=== PATIENT | male | born 1965 | race Hispanic/Latino ===

== ENCOUNTER 2023-01-30 08:24 | Observation (INO) | payer OTHER ==
[2023-01-29 10:55] LABS: BASOPHILS % 0.5 % (0.0-1.0); EOSINOPHILS # (AUTO) 0.3 (0.0-0.4); EOSINOPHILS % 3.3 % (0.0-6.0); HEMATOCRIT 42.1 % (38.2-49.6); HEMOGLOBIN 13.7 g/dL (14.0-18.0); LYMPHOCYTES # (AUTO) 2.8 (1.0-3.2); LYMPHOCYTES % 32.5 % (18.0-39.1); MEAN CORPUSCULAR HGB CONC 32.5 g/dL (31-35); MEAN CORPUSCULAR VOLUME 92.1 fL (81-99); MONOCYTES # (AUTO) 0.5 (0.2-0.8); MONOCYTES % 5.5 % (4.4-11.3); PLATELET COUNT 238 x10e3/uL (140-360); RED BLOOD COUNT 4.57 x10e6/uL (4.3-5.7); RED CELL DISTRIBUTION WIDTH 13.1 % (11.7-14.4)
[2023-01-29 11:07] LABS: INR 1.04; PROTHROMBIN TIME 14.1 seconds (11.9-14.5)
[2023-01-29 11:13] LABS: ANION GAP 13.3 mmol/L (8-16); CALCIUM 9.3 mg/dL (8.4-10.2); CREATININE, SERUM 0.91 mg/dL (0.72-1.25); POTASSIUM 4.3 mmol/L (3.5-5.1)
[~2023-01-30] VITALS: Ht 170.2 cm; Wt 145.1 kg
[~2023-01-30 08:24] MED LIST: METFORMIN HCL500 M1 PO; METHOCARBAMOL750 MG PO; NEURONTIN400 MG PO
[2023-01-30] MEDS ORDERED: CEFAZOLIN SODIUM 2 GM ONE (09:46)
[2023-01-30] MEDS ORDERED: SUGAMMADEX SODIUM 200 MG/2 ML VIAL IV ONE (12:24)
[2023-01-30] MEDS ORDERED: ACETAMINOPHEN 1000 MG/100 ML 100 ML IV ONE (12:24)
[2023-01-30] MEDS ORDERED: FENTANYL CITRATE/PF 100MCG/2 ML INJ ONE (12:57)
[2023-01-30] MEDS ORDERED: MAGNESIUM/ALUMINUM/SIMETHICONE 30 ML UDC PO PRN (13:45)
[2023-01-30] MEDS ORDERED: CEPACOL SORE THROAT LOZENGES PO PRN (13:45)
[2023-01-30] MEDS ORDERED: CARISOPRODOL 350 MG TAB PO PRN (13:45)
[2023-01-30] MEDS ORDERED: ACETAMINOPHEN 325 MG TAB PO PRN (13:45)
[2023-01-30] MEDS ORDERED: ZOLPIDEM TARTRATE 5 MG TAB PO PRN (13:45)
[2023-01-30] MEDS ORDERED: PROMETHAZINE HCL (IM) 25 MG/ML VIAL IM PRN (13:45)
[2023-01-30] MEDS ORDERED: ONDANSETRON HCL INJ 2MG/ML 2ML 2 MG/ML VIAL IV PRN (13:45)
[2023-01-30] MEDS ORDERED: HYDROMORPHONE 2MG/ML 2 MG/ML ML IV PRN (13:45)
[2023-01-30] MEDS ORDERED: Morphine 4mg INJECTION 4 MG/ML INJ IM PRN (13:45)
[2023-01-30] MEDS ORDERED: LACTATED RINGER'S 1,000 ML IV SCH (13:45)
[2023-01-30] MEDS ORDERED: HYDROCODON-ACE1 EA12 PO (13:46)
[2023-01-30 14:33] VITALS: BP 121/80
[2023-01-30] MEDS ORDERED: PNEUMOCOCCAL VACCINE POLYVALENT 23 MCG/0.5 ML VIAL IM SCH (15:00)
[2023-01-30] MEDS: GABAPENTIN 400 MG CAP PO SCH ×2 (16:24→21:13)
[2023-01-30] MEDS: OXYCODONE/ACETAMINOPHEN 5-325 1 EACH TABLET PO PRN ×2 (16:24→21:13)
[2023-01-30 16:34] VITALS: BP 121/80
[2023-01-30 16:38] VITALS: BP 121/80
[2023-01-30 16:40] VITALS: BP 121/80
[2023-01-30] MEDS: METHOCARBAMOL 750 MG TAB PO SCH ×2 (17:42→21:13)
[2023-01-30] MEDS ORDERED: ONDANSETRON HCL INJ 2MG/ML 2ML 2 MG/ML VIAL ONE (19:34)
[2023-01-30] MEDS ORDERED: KETOROLAC TROMETHAMINE 30 MG/ML VIAL ONE (19:34)
[2023-01-30] MEDS ORDERED: PROPOFOL IV EMULSION 10 MG/ML 20 ML VIAL ONE (19:34)
[2023-01-30] MEDS ORDERED: ROCURONIUM BROMIDE 10 MG/ML 5ML VIAL IV ONE (19:34)
[2023-01-30] MEDS ORDERED: DEXAMETHASONE SOD PHOS INJ 4 MG/ML SDV ONE (19:34)
[2023-01-30] MEDS ORDERED: SUCCINYLCHOLINE CHLORIDE 20 MG/ML 10ML VIAL ONE (19:34)
[2023-01-30] MEDS ORDERED: LIDOCAINE HCL 2% LOCAL INJ 5 ML SDV VIAL INJ ONE (19:34)
[2023-01-30] MEDS ORDERED: SEVOFLURANE INHAL SOLN 250 ML PEN BTL ONE (19:34)
[2023-01-30] MEDS ORDERED: POVIDONE IODINE 0.05% 0.05 % ML PO ONE (19:34)
[2023-01-30 19:43] VITALS: BP 125/88
[2023-01-30 22:04] VITALS: BP 125/88
[2023-01-31 00:09] VITALS: BP 125/88
[2023-01-31] MEDS: OXYCODONE/ACETAMINOPHEN 5-325 1 EACH TABLET PO PRN (02:12)
[2023-01-31 04:00] VITALS: BP 99/66
[2023-01-31 08:04] VITALS: BP 95/74
[2023-01-31 08:05] VITALS: BP 95/74
[2023-01-31] MEDS ORDERED: METFORMIN HCL 500 MG TAB CR PO SCH (09:00)
[2023-01-31] MEDS: METHOCARBAMOL 750 MG TAB PO SCH (09:09)
[2023-01-31] MEDS: GABAPENTIN 400 MG CAP PO SCH (09:09)
[2023-01-31] MEDS ORDERED: ONDANSETRON HCL 4 MG ORAL DISINTEGRATING TAB PO PRN (11:00)
[2023-01-31 11:35] VITALS: BP 98/67
== END 2023-01-31 13:13 | disposition home or self-care (01) ==
LOC: OR 08:24 → PACU V 13:45 → MED/SURG3 14:30
PROVIDERS: ADMIT Neurological Surgery; ATTEND Neurological Surgery
DX: M50.122 Cervical disc disorder at C5-C6 level with radiculopathy (principal); Z01.818 Encounter for other preprocedural examination; Z20.822 Contact with and (suspected) exposure to COVID-19; E11.9 Type 2 diabetes mellitus without complications; E66.01 Morbid (severe) obesity due to excess calories; Z68.43 Body mass index [BMI] 50.0-59.9, adult; Z79.4 Long term (current) use of insulin
CPT/HCPCS: 0223U; 20931; 22551; 22845; 36415 ×3; 71046; 72040; 76000; 80048; 82948 ×2; 85025; 85610; 85730; 86850; 86900; 88304; 88311; 93005; 99252; C1713 ×3; G0378 ×2; J0131; J0330; J0690 ×2; J1100; J1885; J2001; J2405; J2704; J7121